=== PATIENT | male | born 1995 | race Caucasian/White ===

== ENCOUNTER 2020-09-07 02:44 | Emergency (ER) | payer OTHER ==
[~2020-09-07] VITALS: Ht 187.9 cm; Wt 95.0 kg
[2020-09-07 03:20] VITALS: BP 140/92
--- NOTE | 2020-09-07 03:47 | ED Abdominal Pain ---
General Chief Complaint: Abdominal/GI Problems Stated Complaint: ABD PAIN Source of Information: Patient Exam Limitations: No Limitations History of Present Illness Date Seen by Provider: Sep 07, 2020 Time Seen by Provider: 03:41 Initial Comments Patient is a 25-year-old male who presents to the emergency department today with a chief complaint of right upper quadrant abdominal pain. Patient states his pain started approximately an hour and a half prior to arrival. Patient states it was not associated with food he ate a sandwich and had some chips earlier in the evening. Patient states that he was nauseated but did not have any vomiting. No other GI issues such as diarrhea, black or bloody stools. Patient denies any fevers or chills. No other complaints of illness or injury. Patient tells me that in actual fact his pain is resolved at the time of my evaluation. He states it started getting better about 30 minutes prior to me seeing him. Pain lasted about an hour in total. Patient states that the only reason he stayed to be seen was that he was afraid something "bad" might be sta rting and he wanted to be evaluated. He has never had pain like this before. But again the pain is resolved. All other review of systems reviewed and negative except as stated. Timing/Duration: 1-3 Hours Severity/Quality: Mild Location: RUQ Radiation: No Radiation Activities at Onset: None Allergies and Home Medications Patient Home Medication List Home Medication List Reviewed: Yes Review of Systems Review of Systems Constitutional: see HPI EENTM: No Symptoms Reported Respiratory: No Symptoms Reported Cardiovascular: No Symptoms Reported Gastrointestinal: Abdominal Pain; Denies Constipated, Denies Diarrhea; Nausea; Denies Vomiting Genitourinary: No Symptoms Reported Musculoskeletal: no symptoms reported Skin: no symptoms reported Past Jmonflm-Ittysu-Oimdwl Hx Patient Social History Recent Foreign Travel: No Contact w/Someone Who Travel: No Physical Exam Vital Signs Capillary Refill : Height/Weight/BMI Height: '" Weight: lbs. oz. kg; BMI Method: General Appearance: WD/WN, no apparent distress HEENT: PERRL/EOMI Neck: supple Respiratory: lungs clear, normal breath sounds, no respiratory distress, no accessory muscle use Cardiovascular: regular rate, rhythm Gastrointestinal: normal bowel sounds, non tender, soft, no organomegaly Extremities: non-tender, normal inspection, normal capillary refill Skin: normal color, warm/dry Progress/Results/Core Measures Progress Progress Note : Time: 03:44 Progress Note 25-year-old male presents to the emergency room with a chief complaint of right upper quadrant abdominal pain. Evaluation today includes a physical exam. The patient's pain has resolved completely just prior to my evaluation. Patient has no clinical or objective findings to warrant further studies from the emergency department. Patient's vital signs are stable. All questions have been sought a nd answered. Patient is stable for discharge. Patient will be discharged home with return precautions. Incidentally the patient's blood pressure is noted to be in the 140s over 90s I have counseled him on blood pressure management and control. I have advised him to follow-up with a primary care physician regarding his high blood pressure. He verbalizes understanding and states that he will see his primary care about hypertension. Departure Impression Primary Impression: Abdominal pain Qualified Codes: R10.11 - Right upper quadrant pain Additional Impression: Elevated blood pressure reading Disposition: 01 HOME, SELF-CARE Condition: Stable Departure-Patient Inst. Decision time for Depature: 03:45 Referrals: [facility] [place],LOCAL PHYSICIAN (PCP) Primary Care Physician Patient Instructions: Abdominal Pain, Adult ED Add. Discharge Instructions: Please drink plenty of fluids to stay well-hydrated. If you have a return of abdominal pain especially associated with fever, nausea vomiting, any other emergent concerns please return to the emergency room for reevaluation. Please follow-up with your primary care physician regarding your elevated blood pressure today. All discharge instructions reviewed with patient and/or family. Voiced understanding. ROLAND CHAUHAN MD Sep 07, 2020 03:46
== END 2020-09-07 03:58 | disposition home or self-care (01) ==
LOC: ER 02:47
DX: R10.11 Right upper quadrant pain (principal); R03.0 Elevated blood-pressure reading, without diagnosis of hypertension
CPT/HCPCS: 99282